=== PATIENT | male | born 1985 | race African-American/Black ===

== ENCOUNTER 2019-07-16 10:54 | Emergency (ER) | payer MEDICAID ==
[~2019-07-16] VITALS: Ht 177.8 cm; Wt 68.0 kg
[2019-07-16] MEDS ORDERED: OLANZAPINE 5MG TABLET ODT PO ONE (11:15)
[2019-07-16] MEDS ORDERED: LORAZEPAM 1MG TABLET PO ONE (11:15)
[2019-07-16 11:35] LABS: BASOPHILS % 0.6 % (0.0-2.0); EOSINOPHILS % 4.2 % (0.0-5.0); HEMATOCRIT. 45.3 % (42.0-52.0); LYMPHOCYTES % 29.4 % (20.0-50.0); MEAN CORPUSCULAR HEMOGLOBIN 26.1 pg (28.0-32.0); MEAN CORPUSCULAR VOLUME 79.1 fL (80.0-94.0); MEAN PLATELET VOLUME 7.8 fl (7.4-10.4); MONOCYTES % 9.6 % (2.0-8.0); NEUTROPHILS % 56.2 % (40.0-76.0); PLATELET 193 x1000/uL (130-400); RED BLOOD CELL COUNT 5.73 mill/uL (4.7-6.1)
[2019-07-16 11:39] LABS: CHLORIDE 110 mEq/L (98-107)
[2019-07-16 11:44] LABS: ETHANOL BLOOD < 10 mg/dL
[2019-07-16 12:49] LABS: CLARITY URINE CLEAR (CLEAR); COLOR URINE YELLOW (YELLOW); KETONES URINE TRACE (NEGATIVE); LEUKOCYTE ESTERASE URINE NEGATIVE (NEGATIVE); NITRITE URINE NEGATIVE (NEGATIVE); OCCULT BLOOD URINE TRACE (NEGATIVE); PH URINE 5.5 (4.5-8.0); PROTEIN URINE NEGATIVE (NEGATIVE); SPECIFIC GRAVITY URINE 1.031 (1.005-1.030)
[2019-07-16 13:02] LABS: *AMPHETAMINES SCREEN URINE NEGATIVE (NEGATIVE); *BARBITURATES SCREEN URINE NEGATIVE (NEGATIVE)
[2019-07-16 13:03] LABS: *BENZODIAZEPINES SCREEN URINE NEGATIVE (NEGATIVE); *COCAINE SCREEN URINE NEGATIVE (NEGATIVE); CANNABINOID URINE SCREEN NEGATIVE (NEGATIVE); METHADONE URINE SCREEN NEGATIVE (NEGATIVE); OPIATES URINE SCREEN NEGATIVE (NEGATIVE); PHENCYCLIDINE URINE SCREEN NEGATIVE (NEGATIVE)
[2019-07-17 03:56] VITALS: BP 112/74
== END 2019-07-17 04:49 ==
LOC: ER 10:54
DX: R07.89 Other chest pain (principal); R45.851 Suicidal ideations; J45.909 Unspecified asthma, uncomplicated; Z98.890 Other specified postprocedural states
CPT/HCPCS: 36415; 71045; 80053; 80305; 80307; 80320; 80329; 81003; 84484; 85025; 93005; 99285; Z7610; G0480